=== PATIENT | female | born 1960 | race Caucasian/White ===

== ENCOUNTER 2016-11-15 23:00 | Observation (INO) | payer BC ==
[~2016-11-15] VITALS: Ht 160 cm; Wt 81.6 kg
--- NOTE | ~2016-11-15 | HP ---
History And Physical [facility] [address] [place]. [address] NAME: JOSE MIGUEL CHAVEZ : 62 STATUS : ADM Jeffrey PAT#: [id number] AGE: 56 ADM/REG DATE : 11/15/16 MR#: [id number] REPORT SERV DATE: 11/16/16 DICTATED BY: BETO KAPLAN DATE: 11/16/16 REPORT STATUS : Draft TRANSCRIBED BY: MODL DATE: 11/16/16 DATE OF ADMISSION: 11/15/2016 CHIEF COMPLAINT: Chest pain. HISTORY OF PRESENT ILLNESS: The patient is a 56-year-old female with known hypertension and hyperlipidemia, followed by Dr. Cynthia Buckner. The patient reports that throughout the day she has had intermittent chest discomfort. Central discomfort in the chest with pressure and heaviness. She developed severe 9/10 intensity chest discomfort this evening and emergency medical services were activated. On arrival, electrocardiogram was performed which demonstrated a left bundle branch block. This was reportedly a new finding per the patient history and a Code STEMI protocol was activated. The patient was transferred emergently to [facility] in [place], [place], with direct admission to the cardiac catheterization laboratory. On arrival in the catheterization laboratory, the patient was pain-free. The patient denies previous chest pain symptoms. She reports intermittent GERD type symptoms in the past. These are infrequent in nature per her report. PAST MEDICAL HISTORY: 1. Hypertension. 2. Hyperlipidemia. PAST SURGICAL HISTORY: 1. Inguinal herniorrhaphy. 2. Bilateral tubal ligation. SOCIAL HISTORY: The patient denies tobacco or alcohol use. The patient denies illicit drug use. 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 She is 50 days away from halfway. She is with three adult children. REVIEW OF SYSTEMS: Review of systems negative for all organ systems except per the history of present illness. ALLERGIES: SULFA WITH RASH. FAMILY HISTORY: Father with coronary artery bypass grafting in his 80s. PHYSICAL EXAMINATION: VITALS: BP: 104/68. PULSE: 84. RESPIRATIONS: 16 and unlabored. SATURATING 100% on 2 L nasal cannula. GENERAL: Overweight middle-aged female in no acute distress. HEENT: Normal. NECK: Supple, no JVD or bruit, normal carotid upstroke bilaterally, no thyromegaly. LUNGS: Clear to auscultation and percussion. No wheezes, rales or rhonchi. No use of accessory muscles. History And Physical [address] [place]. [address] NAME: JOSE MIGUEL CHAVEZ : 62 STATUS : ADM Jeffrey PAT#: [id number] AGE: 56 ADM/REG DATE : 11/15/16 MR#: [id number] REPORT SERV DATE: 11/16/16 DICTATED BY: BETO KAPLAN DATE: 11/16/16 REPORT STATUS : Draft TRANSCRIBED BY: JEWELL DATE: 11/16/16 CARDIOLOGY: Regular rhythm, normal S1, S2, no thrill, no murmur, rubs or gallops, normal PMI. ABDOMEN: Bowel sounds positive, soft, nontender, and nondistended. No masses or aortic bruits. No hepatosplenomegaly or hepatojugular reflux. EXTREMITIES: No edema. Normal pulses. No clubbing or cyanosis. SKIN: Warm and dry, no significant rash. NEUROLOGIC: Alert and oriented x 3. Appropriate mood. LABORATORY AND DIAGNOSTIC STUDIES: Pending at time of arrival in the catheterization laboratory. EKG: Sinus rhythm with left bundle branch block. No old EKG for comparison. IMPRESSION: Severe chest pain with several cardiac risk factors and reportedly new onset left bundle branch block. The patient received emergently a cardiac catheterization laboratory for angiography and intervention as indicated. Please see details of the catheterization results under separate report. In summary, the patient has essentially normal coronary arteries with normal left ventricular systolic function and normal left ventricular end-diastolic filling pressure. Her chest pain was felt to be noncardiac and likely GI in etiology. She is admitted to the cardiac step-down unit for postprocedure followup. ELIO/JEWELL Tyler Kaplan M.D. / [id number] CC: Tyler Kaplan M.D.
[2016-11-15 23:50] LABS: CREATININE 0.9 MG/DL (0.55-1.02)
[2016-11-15 23:52] LABS: BASOPHILS 0.2 %; BASOPHILS ABSOLUTE 0.03 10/3/uL (0.0-0.16); EOSINOPHILS 1.5 %; HEMATOCRIT 38.9 % (36.0-48.0); HEMOGLOBIN 13.5 g/dL (12.0-16.0); IMMATURE GRANULOCYTES 0.3 %; IMMATURE GRANULOCYTES ABSOLUTE 0.04 10/3/uL (0.0-0.11); LYMPHOCYTES ABSOLUTE 1.32 10/3/uL (0.67-4.30); MEAN CORPUS HGB CONC 34.7 g/dL (32.0-36.0); MEAN CORPUSCULAR HEMOGLOB 30.1 pg (26.0-34.0); MEAN CORPUSCULAR VOLUME 86.6 fL (80-100); MEAN PLATELET VOLUME 9.5 fL (9.2-13.0); MONOCYTES 3.8 %; NEUTROPHILS 84.2 %; NEUTROPHILS ABSOLUTE 11.16 10/3/uL (2.02-8.40); PLATELET COUNT 268 10/3/uL (150-400); RBC DISTRIBUTION WIDTH 12.7 % (12.0-16.0); RED CELL COUNT 4.49 10/6/uL (4.0-5.6); WHITE BLOOD CELLS 13.3 10/3/uL (4.5-10.5)
[2016-11-15 23:53] LABS: MANUAL DIFF NO %
[2016-11-15 23:58] LABS: INTERNATIONAL NORMAL RATI 1.1 UNITS (-); PROTIME (NOT ORD) 14.3 SEC (12.0-14.5)
[2016-11-16 00:01] LABS: PARTIAL THROMBO TIME 129.5 SEC (22.5-37.2)
[2016-11-16 00:07] LABS: BUN (BLOOD UREA NITROGEN) 10 MG/DL (6-23); CALCIUM, SERUM 8.7 MG/DL (8.5-10.4); CHEST PAIN PROFILE TAT 0 Hrs 21 Mins; CHLORIDE, SERUM 102 MMOL/L (96-112); CO2 (CARBON DIOXIDE) 27 MMOL/L (24-34); CREATININE 1.09 MG/DL (0.55-1.02); GFR AFRICAN AMERICAN 66 ML/MIN (>=60); GFR NON AFRICAN AMERICAN 57 ML/MIN (>=60); SODIUM, SERUM 140 MMOL/L (135-148); TROPONIN I <0.02 NG/ML (<0.05)
[2016-11-16 00:10] LABS: GLUCOSE, SERUM 241 MG/DL (60-99); POTASSIUM, SERUM 3.1 MMOL/L (3.5-5.3)
[2016-11-16] MEDS ORDERED: PRIN5 PO (05:15)
[2016-11-16] MEDS ORDERED: HCTZ25B PO (05:16)
[2016-11-16] MEDS ORDERED: MIMVEY 1-0.5 M1 EACH PO (05:17)
[2016-11-16] MEDS ORDERED: ZOCOR20 PO (05:18)
[2016-11-16] MEDS ORDERED: VITAMIN B OTC PO (05:19)
[2016-11-16] MEDS ORDERED: FISH OIL OTC PO (05:20)
[2016-11-16] MEDS ORDERED: PROTONIX PO (09:30)
== END 2016-11-16 09:43 | disposition home or self-care (01) ==
LOC: SSU2 23:00 → SSU1 23:00
PROVIDERS: Internal Medicine Cardiovascular Disease
DX: I21.3 ST elevation (STEMI) myocardial infarction of unspecified site (principal); I44.7 Left bundle-branch block, unspecified; I10 Essential (primary) hypertension; E78.5 Hyperlipidemia, unspecified; Z98.51 Tubal ligation status; Z98.890 Other specified postprocedural states; Z88.2 Allergy status to sulfonamides
CPT/HCPCS: 76705; 80048; 83735; 84132; 84295; 84484; 85025; 85610; 85730; 93458; 99152; C1760; C1769; G0378; J0583; J2250; J3010; Q9967